=== PATIENT | female | born 1985 | race African-American/Black ===

== ENCOUNTER 2024-09-03 20:41 | Emergency (ER) | payer SELFPAY ==
[2024-09-03] MEDS ORDERED: Ketorolac Tromethamine 60 MG/2 ML VIAL ONE (21:14)
[2024-09-03] MEDS ORDERED: Orphenadrine Citrate 60 MG/2 ML VIAL ONE (21:19)
== END 2024-09-03 22:55 | disposition home or self-care (01) ==
LOC: NAV ERS 20:41
DX: M54.50 Low back pain, unspecified (principal); X50.0XXA Overexertion from strenuous movement or load, initial encounter
CPT/HCPCS: 96372; 99283; J1885; J2360